=== PATIENT | female | born 1960 | race Caucasian/White ===

== ENCOUNTER → 2017-03-22 | Outpatient (CLI) | payer BC ==
--- NOTE | 2017-03-23 07:57 | MAMMOGRAPHY REPORT ---
BILATERAL DIGITAL SCREENING MAMMOGRAM TOMOSYNTHESIS WITH CAD: 03/22/2017 CLINICAL HISTORY: Routine screening. Patient has no complaints. TECHNIQUE: Breast tomosynthesis in addition to standard 2D mammography was performed. Current study was also evaluated with a Computer Aided Detection (CAD) system. COMPARISON: Comparison is made to exams dated: 03/31/2016 mammogram, 03/24/2016 mammogram, 03/17/2016 m ammogram, 03/13/2015 mammogram, 03/08/2014 mammogram, and 02/17/2012 mammogram - [facility]ter. BREAST COMPOSITION: There are scattered areas of fibroglandular density in both breasts. FINDINGS: There is a stable ribbon-shaped biopsy marker clip in the anterior right breast. No suspic ious mass, architectural distortion or cluster of microcalcifications is seen bilaterally. IMPRESSION: ACR BI-RADS CATEGORY 1: NEGATIVE There is no mammographic evidence of malignancy. A 1 year screening mammogram is recommended. The pa tient will receive written notification of the results. Approximately 10% of breast cancers are not detected with mammography. A negative mammographic report should not delay biopsy if a clinically suggestive mass is present. Marilyn Hoff M.D. ay/:03/22/2017 16:21:27 [employer] Worker: Hilda WALTER(Oli)(Maranda)([place]), [facility] letter sent: Normal 1/2 BI-RADS Code: ACR BI-RADS Category 1: Negative
== END | disposition home or self-care (01) ==
LOC: C.MAMM 07:18
PROVIDERS: ATTEND Family Medicine
DX: Z12.31 Encounter for screening mammogram for malignant neoplasm of breast (principal)

== ENCOUNTER → 2017-05-07 | Outpatient (CLI) | payer BC | END | disposition home or self-care (01) | LOC: C.PAPS 11:13 | PROVIDERS: ATTEND Obstetrics & Gynecology | DX: Z01.419 Encounter for gynecological examination (general) (routine) without abnormal findings (principal) ==

== ENCOUNTER 2020-05-13 02:24 | Observation (INO) ==
[2020-05-13] MEDS ORDERED: GI COCKTAIL ED USE PO ONE (02:37)
--- NOTE | 2020-05-13 02:44 | Emergency Department Note ---
History of Present Illness General Chief Complaint: Chest Pain Stated Complaint: CHEST PAIN Time Seen by Provider: 05/13/20 02:31 History of Present Illness This 59-year-old presents to the ER complaining of intermittent chest pains for the past day Location: Chest Quality: Painful Severity: Moderate Duration: Today Timing: Started around noon Context: Patient was concerned and came in Modifying factors: better with nothing; worse with nothing patient states she has a history esophageal spasms. She took Tums. No real improvement. Symptoms last for a few minutes. She had several episodes today. Nothing exertional. She has been traveling recently. She does not smoke. There is a family history of heart disease. Patient states she is healthy with no active medical problems. Patient denies exertional chest pain, radiating pain, dyspnea, abdominal pain, leg pain or swelling, flulike illness. Home Medications Home Medications Medication Instructions Recorded Confirmed Type calcium-vitamin D3-vitamin K 1 tab PO QAM 05/13/20 05/13/20 History [Viactiv] fluticasone propionate 1 spray INTRANASAL BID PRN 05/13/20 05/13/20 History ketoconazole 1 applic TOPICAL ONCE #120 ml 05/13/20 Rx ifeyyzbc-rmwduxu-xhjg-lutein 1 tab PO DAILY 05/13/20 05/13/20 History [Centrum Silver Ultra Women's] rivaroxaban [Xarelto DVT-PE Treat 1 ea PO DIRECTED #51 ea 05/13/20 Rx 30d Start] Allergies Allergy/AdvReac Type Severity Reaction Status Date / Time aspirin Allergy Severe SWELLING Verified 05/13/20 03:53 NSAIDS (Non-Steroidal Allergy Severe SWELLING Verified 05/13/20 03:53 Anti-Inflamma HIVES codeine Allergy Unknown Hypotension Unverified 05/13/20 03:56 ibuprofen Allergy Unknown Hypotension Unverified 05/13/20 03:54 naproxen Allergy Unknown Hypotension Unverified 05/13/20 03:55 Penicillins Allergy Unknown . Unverified 05/13/20 03:56 Past Med/Surg History Medical History No acute medical problems Surgical History No pertinent past surgical history Social History (Updated 05/13/20 @ 02:42 by Fannie Myers PA-C) Smoking Status: Never smoker Current Living Situation: Spouse Feels Safe at Home: Yes Review of Systems A total of 10 systems reviewed and were otherwise negative Physical Exam Vital Signs Vital Signs - 24 hr 05/13/20 02:27 05/13/20 02:30 05/13/20 02:40 Temperature 36.8 C Temperature Source Oral Pulse Rate 83 91 H Pulse Rate from SpO2 Sensor 83 Respiratory Rate 20 24 Respiratory Effort / Characteristics Non-Labored Spontaneous Respiratory Depth Normal Blood Pressure 162/101 H 172/106 H Blood Pressure Mean 127 128 Pulse Oximetry 97 97 Oxygen Delivery Method Room Air Room Air Room Air Sepsis Recent Fever Within 48 Hours No Sepsis New/Unexplained Change in Mental Status No Sepsis Action Taken by Nursing No Action Required 05/13/20 03:37 05/13/20 04:00 05/13/20 05:18 Temperature Temperature Source Pulse Rate 77 77 79 Pulse Rate from SpO2 Sensor 76 78 Respiratory Rate 20 21 20 Respiratory Effort / Characteristics Respiratory Depth Blood Pressure 183/105 H 158/98 H 165/106 H Blood Pressure Mean 136 113 125 Pulse Oximetry 98 96 99 Oxygen Delivery Method Room Air Room Air Room Air Sepsis Recent Fever Within 48 Hours Sepsis New/Unexplained Change in Mental Status Sepsis Action Taken by Nursing VITALS: Vitals are noted on the nurse's note and reviewed by myself. Vital sign s stable. GENERAL: Pleasant female, in no acute distress, nondiaphoretic, well-developed well-nourished. SKIN: Capillary reflex less than 2 seconds. HEENT: Normocephalic. PERRLA. EOMI. Nares patent. Mucous membranes moist. Neck is supple without nuchal rigidity. HEART: Regular rate and rhythm LUNGS: Clear to auscultation bilaterally without wheezes, rales or rhonchi. No retractions or accessory muscle use. ABDOMEN: Positive bowel sounds x 4. Normal tympanic percussion. Soft, nontender, without masses or organomegaly. Mccabe sign negative. No guarding or rebound tenderness. MUSCULOSKELETAL: No gross musculoskeletal defects. NEURO: Patient was alert and oriented to person place and time. No focal neurological deficits. Course Administered Medications Discontinued Medications Al Hydrox/Mg Hydrox/Simethicone (Gi Cocktail Ed Use) 1 dose PO ONE ONE Stop: 05/13/20 02:38 Last Admin: 05/13/20 02:58 Dose: 1 dose Documented by: [id number] Ioversol (Optiray 320 125ml) 125 ml IV ONCE ONE Stop: 05/13/20 03:41 Last Admin: 05/13/20 03:40 Dose: 106 ml Documented by: [id number] Medical Decision Making Medical Records Attestation: I reviewed the patient's medical records. Home Medications Current Medication List: was personally reviewed by me Laboratory Data Attestation: I reviewed the patient's lab results. Result diagrams: 05/13/20 02:10 05/13/20 02:10 Labs: Lab Results 05/13/20 05/13/20 05/13/20 Range/Units 02:10 02:10 02:10 WBC 8.31 (4.8-10.8) K/uL RBC 4.69 (4.2-5.4) M/uL Hgb 12.9 (12.0-16.0) g/dL Hct 39.3 (37-47) % MCV 83.8 (80-100) fL MCH 27.5 (25-34) pg MCHC 32.8 (32-36) g/dL RDW Std Deviation 40.2 (36.4-46.3) fL RDW Coeff of Trevor 13.3 (11.5-14.5) % Plt Count 175 (130-400) K/uL MPV 11.7 H (7.4-10.4) fL Immature Gran % (Auto) 0.1 % Neut % (Auto) 59.1 % Lymph % (Auto) 28.8 % [place]ata[place]oula % (Auto) 9.6 % Eos % (Auto) 1.9 % Baso % (Auto) 0.5 % Neut # (Auto) 4.91 (1.4-6.5) K/uL Lymph # (Auto) 2.39 (1.2-3.4) K/uL [place] # (Auto) 0.80 H (0.11-0.59) K/uL Eos # (Auto) 0.16 (0-0.5) K/uL Baso # (Auto) 0.04 (0-0.2) K/uL Immature Gran # (Auto) 0.01 (0.00-0.02) K/uL PT 10.3 (9.0-12.0) Seconds INR 1.0 (0.9-1.1) APTT 26.5 (21.0-31.0) Seconds PTT Ratio 0.9 D-Dimer 4080 H* (0-500) ug/L FEU Sodium 139 (136-145) mmol/L Potassium 3.6 (3.5-5.1) mmol/L Chloride 107 (98-107) mmol/L Carbon Dioxide 25 (21-32) mmol/L Anion Gap 7.0 (3-11) BUN 13 (7-18) mg/dl Creatinine 0.75 (0.6-1.2) mg/dl Est Cr Clr Drug Dosing 77.5 ml/min Est GFR ( Amer) 102.6 Est GFR (Non-Af Amer) 88.5 BUN/Creatinine Ratio 17.1 (10-20) Glucose 118 H (70-99) mg/dl Calcium 9.7 (8.5-10.1) mg/dl Total Bilirubin 0.5 (0.2-1) mg/dl AST 20 (15-37) U/L ALT 25 (12-78) U/L Alkaline Phosphatase 98 (45-117) U/L Troponin I < 0.015 (0-0.045) ng/ml Total Protein 7.7 (6.4-8.2) gm/dl Albumin 3.6 (3.4-5.0) gm/dl Globulin 4.1 H (2.5-4.0) gm/dl Albumin/Globulin Ratio 0.9 (0.9-2) Lipase 124 (73-393) U/L 05/13/20 Range/Units 04:40 WBC (4.8-10.8) K/uL RBC (4.2-5.4) M/uL Hgb (12.0-16.0) g/dL Hct (37-47) % MCV (80-100) fL MCH (25-34) pg MCHC (32-36) g/dL RDW Std Deviation (36.4-46.3) fL RDW Coeff of Trevor (11.5-14.5) % Plt Count (130-400) K/uL MPV (7.4-10.4) fL Immature Gran % (Auto) % Neut % (Auto) % Lymph % (Auto) % [place]oul[place] % (Auto) % Eos % (Auto) % Baso % (Auto) % Neut # (Auto) (1.4-6.5) K/uL Lymph # (Auto) (1.2-3.4) K/uL [place] # (Auto) (0.11-0.59) K/uL Eos # (Auto) (0-0.5) K/uL Baso # (Auto) (0-0.2) K/uL Immature Gran # (Auto) (0.00-0.02) K/uL PT (9.0-12.0) Seconds INR (0.9-1.1) APTT (21.0-31.0) Seconds PTT Ratio D-Dimer (0-500) ug/L FEU Sodium (136-145) mmol/L Potassium (3.5-5.1) mmol/L Chloride (98-107) mmol/L Carbon Dioxide (21-32) mmol/L Anion Gap (3-11) BUN (7-18) mg/dl Creatinine (0.6-1.2) mg/dl Est Cr Clr Drug Dosing ml/min Est GFR ( Amer) Est GFR (Non-Af Amer) BUN/Creatinine Ratio (10-20) Glucose (70-99) mg/dl Calcium (8.5-10.1) mg/dl Total Bilirubin (0.2-1) mg/dl AST (15-37) U/L ALT (12-78) U/L Alkaline Phosphatase (45-117) U/L Troponin I < 0.015 (0-0.045) ng/ml Total Protein (6.4-8.2) gm/dl Albumin (3.4-5.0) gm/dl Globulin (2.5-4.0) gm/dl Albumin/Globulin Ratio (0.9-2) Lipase (73-393) U/L MDM Narrative Prior records/ancillary studies reviewed. Triage Nursing notes reviewed. Additional history obtained from EMS. The patient's history was concerning for chest pain. Differential diagnosis: Etiologies such as cardiac ischemia, aortic dissection, pulmonary embolism, pne umonia, pneumothorax, musculoskeletal, infections, pericarditis, myocarditis, esophageal rupture, gastrointestinal, as well as others were entertained. Physical examination: As above. ER treatment provided: An order was placed for continuous cardiac monitoring. The monitor shows a rate of 60-100 with a sinus rhythm. GI cocktail, Xarelto On reassessment the patient felt better. Diagnostic interpretation by me: The electrocardiogram was negative for pathologic change. Normal sinus, normal intervals, no acute ST-T wave changes. Impression normal sinus with interpreted by myself EKG ordered for chest pain I think arrhythmia is unlikely. EKG shows normal sinus rhythm with no interval abnormalities such as QT prolongation or WPW. There are no findings to suggest Brugada syndrome. Cardiac monitoring in the emergency department reveals no tachycardic or bradycardic dysrhythmia. Hypertrophic cardiomyopathy was considered but there are no clear historical elements pointing toward this. EKG is not suggestive. The QRS voltage is not extremely large and there are no suggestive Q waves. The labs revealed negative troponin. Elevated d-dimer Imaging studies: Chest x-ray with no acute consolidation, pneumothorax or free air per my interpretation CTA CHEST: Small pulmonary embolus in the subsegmental pulmonary arteries to the lingula. No definite evidence for right heart strain. No aortic aneurysm or dissection. No acute pulmonary parenchymal abnormality identified. Mild scarring at the lung apices. Nonspecific 3 mm nodule in the right lower lobe. Minimal dependent and bibasilar atelectasis. Small hiatal hernia. Evaluation of the stomach is limited by underdistention. Nonspecific mildly prominent mediastinal and hilar lymph nodes. Radiologist: Anitra Dickson M.D. US VENOUS BILATERAL LOWER EXTREMITIES: No DVT in the left lower extremity Right lower extremity deep venous thrombosis in the peroneal vein. Radiologist: Chase Pearson MD HEART SCORE: Hx: high/mod/low suspicion: 0 ECG: ST depression/nonspecific changes/normal: 0 Age: Greater than 65/45-64/less than 45: 1 Risk factors: (Hypertension, hyperlipidemia, diabetes, coronary disease, tobacco use, cocaine use): 0 Troponin: Greater than 2 times normal limits/1-2 times normal limits/normal: 0 Total: 1 Consultation: A consultation was placed with the hospitalist, Dr. Snider. The case was discussed and diagnostics were reviewed. The patient was evaluated in the ER for further treatment. He agrees with treatment plan of discharging on Xarelto since patient is considered low risk and outpatient follow-up as long as ultrasound of the legs are negative. Patient has a small DVT. Medicine will admit the patient. PESI Score Age: 59 Male gender: 0 History of cancer: 0 Heart failure: 0 Chronic lung disease: 0 Pulse =110/min: 0 Systolic blood pressure <100 mmH Respiratory rate =30/min: 0 Temperature <36 Celcius: 0 Altered mental status: 0 Arterial oxygen saturation <90 percent: 0 Total: 57 Class I Low risk <66 Class II 66 to 85 Class III High risk 86 to 105 Class IV 106 to 125 Class V >125 Exam and history seem consistent small subsegmental PE. PESIi score is low. Me gallardo was consulted. Patient is a small DVT and now will be evaluated for admission. Medicine was reconsulted. By the evaluation outlined above emergent etiologies such as cardiac ischemia, aortic dissection, pneumonia, pneumothorax, infections, pericarditis, myocarditis, gastrointestinal, as well as others were deemed relatively unlikely. The pt informed about the findings as listed above. All questions were answered and pleased with the treatment. The chart was completed utilizing [employer] Speech voice recognition software. Grammatical errors, random word insertions, pronoun errors, and incomplete sentences are an occassional consequence of this system due to software limitat ions, ambient noise, and hardware issues. Any formal questions or concerns about the content, text, or information contained within the body of this dictation should be directly addressed to the physician library clerical assistant for clarification. Impression & Plan Pulmonary embolism, Chest pain Discharge Plan Visit Data Chief Complaint: Chest Pain Stated Complaint: CHEST PAIN ED Provider: Janell Beckham ED Midlevel Provider: Fannie Myers Discharge Problem: Pulmonary embolism, Chest pain Patient Disposition: Admitted As Inpatient Condition: Good Discharge Instructions Krames/Other Patient Handouts: Embolism Pulmonary Dc Activity Restrictions/Additional Instructions: Forms Stand Alone Forms: Work/School Release (ED), Virtual Emergency Department, Important Visit Information Prescriptions Prescriptions: New Xarelto DVT-PE Treat 30d Start 15 mg (42)- 20 mg (9) tablets,dose pack 1 ea PO DIRECTED Qty: 51 RF: 0 ketoconazole 2 % shampoo 1 applic topical ONCE Qty: 120 RF: 0 No Action Centrum Silver Ultra Women's Tablet 1 tab PO DAILY RF: 0 calcium-vitamin D3-vitamin K [Viactiv] 650 mg-12.5 mcg-40 mcg Tablet,Chewable 1 tab PO QAM RF: 0 fluticasone propionate 50 mcg/actuation spray,suspension 1 spray INTRANASAL BID PRN (Reason: Allergy Symptoms) RF: 0 Referrals Referrals: Jean Steinberg MD [Primary Care Provider] - Discharge Problem: Pulmonary embolism Qualifiers: Pulmonary embolism type: single subsegmental (without acute cor pulmonale) Qualified Code(s): I26.93 - Single subsegmental pulmonary embolism without acute cor pulmonale
[2020-05-13 02:48] LABS: Basophils # (auto) 0.04 K/uL (0-0.2); Basophils % (auto) 0.5 %; Eosinophils # (auto) 0.16 K/uL (0-0.5); Eosinophils % (auto) 1.9 %; Hematocrit (blood only) 39.3 % (37-47); Hemoglobin 12.9 g/dL (12.0-16.0); Immature Granulocytes # (auto) 0.01 K/uL (0.00-0.02); Immature Granulocytes % (auto) 0.1 %; Lymphocytes # (auto) 2.39 K/uL (1.2-3.4); Lymphocytes % (auto) 28.8 %; Mean Corpuscular Hemoglobin 27.5 pg (25-34); Mean Corpuscular Hgb Conc 32.8 g/dL (32-36); Mean Corpuscular Volume 83.8 fL (80-100); Mean Platelet Volume 11.7 fL (7.4-10.4); Monocytes % (auto) 9.6 %; Neutrophils # (auto) 4.91 K/uL (1.4-6.5); Neutrophils % (auto) 59.1 %; Platelet Count 175 K/uL (130-400); RDW Coefficient of Variation 13.3 % (11.5-14.5); RDW Standard Deviation 40.2 fL (36.4-46.3); Red Blood Count 4.69 M/uL (4.2-5.4); White Blood Count 8.31 K/uL (4.8-10.8)
[2020-05-13 02:56] LABS: Alanine Aminotransferase 25 U/L (12-78); Albumin Level 3.6 gm/dl (3.4-5.0); Aspartate Aminotransferase 20 U/L (15-37); BUN Creatinine Ratio 17.1 (10-20); Blood Urea Nitrogen 13 mg/dl (7-18); Calcium 9.7 mg/dl (8.5-10.1); Carbon Dioxide 25 mmol/L (21-32); Chloride 107 mmol/L (98-107); Creatinine Clr Calc Pharmacy 77.5 ml/min; Est GFR (African American) 102.6; Est GFR (Non-African American) 88.5; Glucose 118 mg/dl (70-99); Lipase 124 U/L (73-393); Potassium 3.6 mmol/L (3.5-5.1); Sodium 139 mmol/L (136-145)
[2020-05-13 03:00] LABS: Partial Thromboplastin Ratio 0.9; Partial Thromboplastin Time 26.5 Seconds (21.0-31.0); Prothrombin Time 10.3 Seconds (9.0-12.0)
[2020-05-13 03:01] LABS: Albumin Globulin Ratio 0.9 (0.9-2); Alkaline Phosphatase 98 U/L (45-117); Bilirubin,Total 0.5 mg/dl (0.2-1); Globulin 4.1 gm/dl (2.5-4.0); Total Protein 7.7 gm/dl (6.4-8.2); Troponin I < 0.015 ng/ml (0-0.045)
[2020-05-13 03:05] LABS: D Dimer 4080 ug/L FEU (0-500)
[2020-05-13] MEDS ORDERED: OPTIRAY 320 125ml IV ONE (03:40)
--- NOTE | 2020-05-13 06:03 | History & Physical Report ---
Date of Service May 13, 2020 Assessment & Plan (1) Pulmonary embolism: Pulmonary embolism involving the lingula/DVT involving right lower extremity peroneal vein- Order hypercoagulable work-up Start anticoagulation with Xarelto. 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 Primary Care Provider: Jean Steinberg MD The patient is a 59-year-old female past medical history including esophageal spasm and allergic rhinitis, who recently went on a trip to [facility], and presents to the emergency department today with chest pain as noted. She has a known history of esophageal spasm, did try taking Tums without significant improvement. She reports having several episodes of chest discomfort today. She has no known sick exposures. Work-up in the emergency department included a CT angiography of chest PE protocol, which showed a small lingular pulmonary embolism. She then underwent bilateral lower extremity venous Dopplers, which were positive for DVT. Allergies Allergy/AdvReac Type Severity Reaction Status Date / Time aspirin Allergy Severe SWELLING Verified 05/13/20 03:53 NSAIDS (Non-Steroidal Allergy Severe SWELLING Verified 05/13/20 03:53 Anti-Inflamma HIVES codeine Allergy Unknown Hypotension Unverified 05/13/20 03:56 ibuprofen Allergy Unknown Hypotension Unverified 05/13/20 03:54 naproxen Allergy Unknown Hypotension Unverified 05/13/20 03:55 Penicillins Allergy Unknown . Unverified 05/13/20 03:56 Home Medications Home Medications Medication Instructions Recorded Confirmed Type calcium-vitamin D3-vitamin K 1 tab PO QAM 05/13/20 05/13/20 History [Viactiv] fluticasone propionate 1 spray INTRANASAL BID PRN 05/13/20 05/13/20 History ketoconazole 1 applic TOPICAL ONCE #120 ml 05/13/20 Rx pvcmsjqe-uwqoxyu-hdjr-lutein 1 tab PO DAILY 05/13/20 05/13/20 History [Centrum Silver Ultra Women's] rivaroxaban [Xarelto DVT-PE Treat 1 ea PO DIRECTED #51 ea 05/13/20 Rx 30d Start] Past Med/Surg History Medical History No acute medical problems Surgical History No pertinent past surgical history Social History (Updated 05/13/20 @ 02:42 by Fannie Myers PA-C) Smoking Status: Never smoker Current Living Situation: Spouse Feels Safe at Home: Yes Review of Systems Review of Systems: The patient denies palpitations, shortness of breath, dyspnea on exertion, cough, lower extremity swelling, sore throat, fevers, chills, sweats, nausea, vomiting, diarrhea , constipation, abdominal pain, pelvic pain, blood in urine or stool, dysuria, urinary frequency or urgency, lightheadedness, dizziness, headache, memory loss, loss of consciousness, rash, abnormal bruising or bleeding, imbalance, focal or generalized weakness, numbness or tingling in arms or legs, generalized arthralgias or myalgias, back or neck pain, or night sweats. The review of systems is otherwise negative other than for that already noted above, and at least 10 systems have been reviewed. Physical Exam Physical Exam: The patient is awake, alert and oriented 3, well developed and well nourished, normocephalic and atraumatic, lying in bed and in no acute distress. HEENT--PERRL, EOMI, mucous membranes and oropharynx normal. Neck--supple. No JVD. No bruits. Thyroid normal, trachea midline, no adenopathy. Heart--normal S1 and S2. No murmurs, rubs or gallops. Lungs--clear bilaterally, no respiratory distress, no accessory muscle use. Abdomen--normal bowel sounds and soft. Nontender. Nondistended. Extremities--no cyanosis or clubbing. No edema. Dermatologic--normal skin turgor, normal color, no abnormal lymph nodes, no rash. Neurologic--cranial nerves II through XII grossly intact. Rheumatologic--normal range of motion. Psychiatric--normal affect. Results & Data Results & Data ([facility]) Vital Signs (Past 12 Hours) Vital Signs Temp Pulse Resp BP Pulse Ox 05/13/20 05:18 79 20 165/106 H 99 05/13/20 04:00 77 21 158/98 H 96 05/13/20 03:37 77 20 183/105 H 98 05/13/20 02:40 98.2 F 91 H 24 172/106 H 97 05/13/20 02:30 83 20 162/101 H 97 Laboratory Results Laboratory Results WBC 8.31 K/uL (4.8-10.8) 05/13/20 02:10 RBC 4.69 M/uL (4.2-5.4) 05/13/20 02:10 Hgb 12.9 g/dL (12.0-16.0) 05/13/20 02:10 Hct 39.3 % (37-47) 05/13/20 02:10 MCV 83.8 fL (80-100) 05/13/20 02:10 MCH 27.5 pg (25-34) 05/13/20 02:10 MCHC 32.8 g/dL (32-36) 05/13/20 02:10 RDW Std Deviation 40.2 fL (36.4-46.3) 05/13/20 02:10 RDW Coeff of Trevor 13.3 % (11.5-14.5) 05/13/20 02:10 Plt Count 175 K/uL (130-400) 05/13/20 02:10 MPV 11.7 fL (7.4-10.4) H 05/13/20 02:10 Immature Gran % (Auto) 0.1 % 05/13/20 02:10 Neut % (Auto) 59.1 % 05/13/20 02:10 Lymph % (Auto) 28.8 % 05/13/20 02:10 [place] % (Auto) 9.6 % 05/13/20 02:10 Eos % (Auto) 1.9 % 05/13/20 02:10 Baso % (Auto) 0.5 % 05/13/20 02:10 Neut # (Auto) 4.91 K/uL (1.4-6.5) 05/13/20 02:10 Lymph # (Auto) 2.39 K/uL (1.2-3.4) 05/13/20 02:10 [place] # (Auto) 0.80 K/uL (0.11-0.59) H 05/13/20 02:10 Eos # (Auto) 0.16 K/uL (0-0.5) 05/13/20 02:10 Baso # (Auto) 0.04 K/uL (0-0.2) 05/13/20 02:10 Immature Gran # (Auto) 0.01 K/uL (0.00-0.02) 05/13/20 02:10 PT 10.3 Seconds (9.0-12.0) 05/13/20 02:10 INR 1.0 (0.9-1.1) 05/13/20 02:10 APTT 26.5 Seconds (21.0-31.0) 05/13/20 02:10 PTT Ratio 0.9 05/13/20 02:10 D-Dimer 4080 ug/L FEU (0-500) H* 05/13/20 02:10 Sodium 139 mmol/L (136-145) 05/13/20 02:10 Potassium 3.6 mmol/L (3.5-5.1) 05/13/20 02:10 Chloride 107 mmol/L (98-107) 05/13/20 02:10 Carbon Dioxide 25 mmol/L (21-32) 05/13/20 02:10 Anion Gap 7.0 (3-11) 05/13/20 02:10 BUN 13 mg/dl (7-18) 05/13/20 02:10 Creatinine 0.75 mg/dl (0.6-1.2) 05/13/20 02:10 Est Cr Clr Drug Dosing 77.5 ml/min 05/13/20 02:10 Est GFR ( Amer) 102.6 05/13/20 02:10 Est GFR (Non-Af Amer) 88.5 05/13/20 02:10 BUN/Creatinine Ratio 17.1 (10-20) 05/13/20 02:10 Glucose 118 mg/dl (70-99) H 05/13/20 02:10 Calcium 9.7 mg/dl (8.5-10.1) 05/13/20 02:10 Total Bilirubin 0.5 mg/dl (0.2-1) 05/13/20 02:10 AST 20 U/L (15-37) 05/13/20 02:10 ALT 25 U/L (12-78) 05/13/20 02:10 Alkaline Phosphatase 98 U/L (45-117) 05/13/20 02:10 Troponin I < 0.015 ng/ml (0-0.045) 05/13/20 04:40 Total Protein 7.7 gm/dl (6.4-8.2) 05/13/20 02:10 Albumin 3.6 gm/dl (3.4-5.0) 05/13/20 02:10 Globulin 4.1 gm/dl (2.5-4.0) H 05/13/20 02:10 Albumin/Globulin Ratio 0.9 (0.9-2) 05/13/20 02:10 Lipase 124 U/L (73-393) 05/13/20 02:10 Diagnostic Findings [facility] Patient: CRISTO HARVEY (Female) : 64 Status: ER Date: 05/13/20 03:39 Room #: History: TRAVEL TODAY IN CAR, HAS HAD CENTRAL CHEST PAIN ON AND OFF SINCE, ALSO PAIN THAT GOES UP NECK INTO JAW BILATERAL Slices: 665 Priors: Tech: Rj Arrieta @ [phone] Exams: CTA CHEST Contrast: IV Amt: 106 ML OPTIRAY 320 Accession Numbers: [id number] Preliminary Findings Only See Final Report For Complete Findings CTA CHEST: Small pulmonary embolus in the subsegmental pulmonary arteries to the lingula. No definite evidence for right heart strain. No aortic aneurysm or dissection. No acute pulmonary parenchymal abnormality identified. Mild scarring at the lung apices. Nonspecific 3 mm nodule in the right lower lobe. Minimal dependent and bibasilar atelectasis. Small hiatal hernia. Evaluation of the stomach is limited by underdistention. Nonspecific mildly prominent mediastinal and hilar lymph nodes. Radiologist: Anitra Dickson M.D. Study ready at 03:44 and initial results transmitted at 03:59 Communications: Clear Time Type Notes 05/13/20 04:00 Call Doctor Regarding Pulmonary Embolism, called Corrie ELLISON i on 05/13 04:00 (-04:00) *This report constitutes a preliminary interpretation only. Non-acute findings felt to be unrelated to the clinical presentation may not be discussed in this report. The study will be interpreted and a final report will be generated by the local Radiologist the following shift. To reach the hospital radiology department call [phone]. If a discrepancy is found between the preliminary and final interpretations of this study, please notify us via our Client Portal at [email or web address], under [email or web address] [email or web address].You can also fax this report with a description of the discrepancy, or include the final report, to our daytime fax number [phone].If faxing, please indicate the severity of discrepancy using one of the following categories: [ ] 1 - Agree/Informational [ ] 2 - Unlikely to Affect Management [ ] 3 - Possible Eventual Change of Management [ ] 4 - Probable Immediate Change of Management For all other patient related information, please fax us at [phone]. [id number] [facility] Patient: CRISTO HARVEY (Female) : 64 Status: ER Date: 05/13/20 05:32 Room #: History: PE Slices: 48 Priors: Tech: Hazel Brambilanifer @ [phone] Exams: US VENOUS BILATERAL LOWER EXTREMITIES Contrast: Accession Numbers: [id number] Preliminary Findings Only See Final Report For Complete Findings US VENOUS BILATERAL LOWER EXTREMITIES: No DVT in the left lower extremity Right lower extremity deep venous thrombosis in the peroneal vein. Radiologist: Chase Pearson MD Study ready at 05:43 and initial results transmitted at 05:49 *This report constitutes a preliminary interpretation only. Non-acute findings felt to be unrelated to the clinical presentation may not be discussed in this report. The study will be interpreted and a final report will be generated by the local Radiologist the following shift. To reach the hospital radiology department call [phone]. If a discrepancy is found between the preliminary and final interpretations of this study, please notify us via our Client Portal at [email or web address], under [email or web address] [email or web address].You can also fax this report with a description of the discrepancy, or include the final report, to our daytime fax number [phone].If faxing, please indicate the severity of discrepancy using one of the following categories: [ ] 1 - Agree/Informational [ ] 2 - Unlikely to Affect Management [ ] 3 - Possible Eventual Change of Management [ ] 4 - Probable Immediate Change of Management For all other patient related information, please fax us at [phone] [id number] Code Status & VTE Plan Code Status Full code VTE Prophylaxis Plan VTE Prophylaxis will be ordered: Yes PG Care Time/CCT Total # of Minutes Spent Total Time Spent with Patient: Total time spent is greater than 50% in coordination of care (as documented) at patient's floor/unit and/or counseling patient: Coding Level of Care Code 07478 OBS Care - Level 3 Diagnoses Pulmonary embolism I26.93 Pulmonary embolism type: single subsegmental (without acute cor pulmonale) DVT of leg (deep venous thrombosis) I82.409 Costochondritis M94.0 H/O esophageal spasm Z87.19 (1) Pulmonary embolism Pulmonary embolism type: single subsegmental (without acute cor pulmonale) Qualified Code(s): I26.93 - Single subsegmental pulmonary embolism without acute cor pulmonale
--- NOTE | 2020-05-13 06:49 | Ultrasound Report ---
US venous doppler LE BI CLINICAL HISTORY: Pulmonary embolism COMPARISON STUDY: No previous studies for comparison. FINDINGS: Real-time color flow and Doppler spectral waveform analysis was performed. On the right, no thrombus is visualized in common femoral superficial femoral and popliteal veins. Th ere is a right peroneal thrombus. The anterior tibial and posterior tibial veins appeared patent. On the left, the common femoral superficial femoral popliteal veins appeared patent. The proximal tri furcation veins appear patent. IMPRESSION: 1. Right lower extremity DVT involving the peroneal vein. No evidence for above the thrombus 2. No evidence of left lower extremity DVT ACT 112: Negative or not required by law. Electronically signed by: Johnathan Malik M.D. 05/13/2020 6:48 AM
--- NOTE | 2020-05-13 07:06 | CT Scan Report ---
CT ANGIOGRAPHY OF THE CHEST, PULMONARY EMBOLUS PROTOCOL CLINICAL HISTORY: Chest pain extending into the neck. COMPARISON STUDY: Chest radiograph February 18, 2014 and May 13, 2020. TECHNIQUE: Following IV administration of 106 mL of Optiray-320, helical axial images of the chest we re obtained utilizing the pulmonary embolus protocol. Maximal intensity projections and sagittal and coronal reformats were viewed on an independent 3D workstation. IV contrast was administered withou t complication. Automated exposure control was utilized for the study. A dose lowering technique wa s utilized adhering to the principles of ALARA. CT DOSE: 342.33 mGycm FINDINGS: Note is made of a small segmental embolus within the lingula shown on axial image 166 of 2 78. No central pulmonary embolus is identified. The size of the heart is normal. There is no thoracic aortic dissection. There is no pericardial effusion. No pneumothorax or pleural effusion is present. There is no pulmonary infarct. No consolidation is present. No thoracic lymphadenopathy is present. Upper abdomen is unremarkable. IMPRESSION: 1. Small segmental pulmonary embolus within the lingula. 2. No pulmonary infarct. ACT 112: Negative or not required by law. Electronically signed by: Tyrone Nguyen M.D. 05/13/2020 7:05 AM
--- NOTE | 2020-05-13 07:56 | XRay Report ---
XR chest 1V portable HISTORY: Atypical Chest Pain COMPARISON: Chest 02/18/2014. FINDINGS: The lungs are clear. Cardiac silhouette is normal in size. No pleural effusions. No pneumot horax. IMPRESSION: No acute process. ACT 112: Negative or not required by law. Electronically signed by: Marcelino Hernandez M.D. 05/13/2020 7:54 AM
[2020-05-13] MEDS ORDERED: ONDANSETRON INJ 2 MG/ML 2 ML VIAL IV PRN (08:03)
[2020-05-13] MEDS ORDERED: FLUTICASONE PROPIONATE NA SPR 16 GM BTL PRN (08:03)
[2020-05-13] MEDS ORDERED: ACETAMINOPHEN 325 MG TAB PO PRN (08:03)
[2020-05-13] MEDS ORDERED: INFLUENZA VIRUS QUAD VACCINE 0.5 ML SYR IM ONE (08:17)
[2020-05-13] MEDS ORDERED: INFLUENZA ADMINISTRATION CHARGE ONE (08:17)
[2020-05-13] MEDS ORDERED: RIVAROXABAN 15 MG TAB PO SCH (09:00)
[2020-05-13] MEDS ORDERED: NON-FORMULARY MEDICATION (Calcium-Vitamin D3-Vitamin K [Viactiv] 1 TAB) PO SCH (09:00)
[2020-05-13] MEDS ORDERED: CEROVITE ADV FORMULA TAB PO SCH (09:00)
[2020-05-13] MEDS ORDERED: Nursing to Pharmacy Communication SCH (13:45)
--- NOTE | 2020-05-13 16:04 | Electrocardiogram Report ---
Test Reason : Blood Pressure : / mmHG Vent. Rate : 093 BPM Atrial Rate : 093 BPM P-R Int : 136 ms QRS Dur : 076 ms QT Int : 340 ms P-R-T Axes : 050 044 050 degrees QTc Int : 422 ms Age and gender specific ECG analysis Normal sinus rhythm Nonspecific ST and T wave abnormality Abnormal ECG When compared with ECG of 24-JAN-2018 09:31, Criteria for Septal infarct are no longer Present Confirmed by Ramez Hamm ([id number]) on 05/13/2020 4:03:45 PM Referred By: REFERRED SELF Confirmed By:Ramez Hamm
--- NOTE | 2020-05-13 16:04 | Electrocardiogram Report ---
Test Reason : Blood Pressure : / mmHG Vent. Rate : 081 BPM Atrial Rate : 081 BPM P-R Int : 158 ms QRS Dur : 084 ms QT Int : 376 ms P-R-T Axes : 034 -02 030 degrees QTc Int : 436 ms Normal sinus rhythm Nonspecific ST abnormality Abnormal ECG When compared with ECG of 13-MAY-2020 02:27, (unconfirmed) No significant change was found Confirmed by Ramez Hamm ([id number]) on 05/13/2020 4:03:52 PM Referred By: REFERRED SELF Confirmed By:Ramez Hamm
--- NOTE | 2020-05-14 08:49 | Discharge Summary ---
Date of Service May 13, 2020 Admission HPI Per Admitting Provider The patient is a 59-year-old female past medical history including esophageal spasm and allergic rhinitis, who recently went on a trip to [facility], and presents to the emergency department today with chest pain as noted. She has a known history of esophageal spasm, did try taking Tums without significant improvement. She reports having several episodes of chest discomfort today. She has no known sick exposures. Work-up in the emergency department included a CT angiography of chest PE protocol, which showed a small lingular pulmonary embolism. She then underwent bilateral lower extremity venous Dopplers, which were positive for DVT. Principal Diagnosis Pulmonary embolism Discharge Exam Constitutional WD/WN, vitals as above Neck trachea midline, no thyromegaly Respiratory normal respiratory effort, lungs clear to auscultation Cardiovascular RRR, no murmur, no edema Gastrointestinal (Abdomen) normal bowel sounds, soft, nontender, no hepatosplenomegaly Musculoskeletal no cyanosis or clubbing, extremities motor strength 5/5 Skin no rashes, warm and dry Neurologic patellar DTR's 2+ bilat, sensation intact and PERRL, EOMI, accommodation nl, no face palsy, no dysarthria Psychiatric A+Ox3, euthymic affect Discharge Data Allergies Allergy/AdvReac Type Severity Reaction Status Date / Time aspirin Allergy Severe SWELLING Verified 05/13/20 03:53 NSAIDS (Non-Steroidal Allergy Severe SWELLING Verified 05/13/20 03:53 Anti-Inflamma HIVES codeine Allergy Unknown Hypotension Unverified 05/13/20 03:56 ibuprofen Allergy Unknown Hypotension Unverified 05/13/20 03:54 naproxen Allergy Unknown Hypotension Unverified 05/13/20 03:55 Penicillins Allergy Unknown . Unverified 05/13/20 03:56 Consultations 05/13/20 05:37 ED Decision to Admit Stat 05/13/20 08:03 Consult Case Management - Discharge Planning Routine Ordered Studies 05/13/20 03:05 CT angio chest PE protocol Urgent 05/13/20 04:25 US venous doppler [facility] Urgent Hospital Course (1) Pulmonary embolism: Pulmonary embolism involving the lingula/DVT involving right lower extremity peroneal vein- no dyspnea, no hypoxia, no cough, HR stable has some chest pain on right side of chest, would not correlate with lingula PE suspect the right sided chest pain due to carrying heavy straps across right shoulder treat PE with Xarelto, 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 by 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 caser discharge to home, follow up with PCP (2) DVT of leg (deep venous thrombosis): right lower extremity DVT involving peroneal vein treat with Xarelto (3) Costochondritis: Reproducible pain right upper lateral costochondral junction- Likely traced back to having to carry 3 cameras over her right shoulder 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 [employer] (4) H/O esophageal spasm: Not related to the symptoms of today Total Time Total Time Spent Total Time Spent (In Minutes): 32 Total Time Includes: Examination of the Patient, Discharge Planning and Medication Reconciliation Discharge Plan Discharge Items Patient Disposition: Home - Self-Care Reason For Visit: PE, DVT Discharge Diagnosis: Small pulmonary embolism Right peroneal vein DVT Chest pain Condition on Discharge: Good Activity: Resume your previous activity Non-emergency contact: Primary Care Provider Call non-emergency contact if: you have any medication questions Follow-up/Referrals: Jean Steinberg MD [Primary Care Provider] - 05/20/20 10:50 am (one week, hospital follow up with Dr Boudreaux) Diet: Regular Addtl Attending Provider Instructions: Medications: - Xarelto: take 15mg twice a day for 21 days then change to 20mg daily, continue this for 6 months Pulmonary embolism, right peroneal vein DVT treated with Xarelto no limitations, stay active hypercoagulable panel sent in the ED, this is to look for genetic pre- disposition for blood clots, results will take a week to come back follow up with Dr. Steinberg in one week he can prescribe you further Xarelto 20mg daily, the starter pack will be good for the first month of treatment Pending Studies at Discharge: Yes Studies:: hypercoagulable panel Stand-Alone Forms: My [place], Smoking Cessation Medications and DC Order Prescriptions: New Xarelto DVT-PE Treat 30d Start 15 mg (42)- 20 mg (9) tablets,dose pack 1 ea PO DIRECTED Qty: 51 RF: 0 ketoconazole 2 % shampoo 1 applic topical ONCE Qty: 120 RF: 0 Continued fplfigbn-uvorlzm-wrpy-lutein Tablet 1 tab PO DAILY RF: 0 calcium-vitamin D3-vitamin K [Viactiv] 650 mg-12.5 mcg-40 mcg Tablet,Chewable 1 tab PO QAM RF: 0 fluticasone propionate 50 mcg/actuation spray,suspension 1 spray INTRANASAL BID PRN (Reason: Allergy Symptoms) RF: 0 Discharge Orders: Discharge Order (Routine); Ordered 05/13/20 Ordered By: Domenico Swann Admission Data Admit Date/Time: 05/13/20 05:46 Attending Provider: Domenico Swann Admit Provider: Francis Love Primary Care Provider: Jean Steinberg Other Providers: Francis Love Other Interventions: Discharge Summary Assessment (RN) Last Done: 05/13/20 13:44 Coding Level of Care Code 63836 OBS Care - Discharge Diagnoses Pulmonary embolism I26.93 Pulmonary embolism type: single subsegmental (without acute cor pulmonale) DVT of leg (deep venous thrombosis) I82.409 Costochondritis M94.0 H/O esophageal spasm Z87.19
[2020-05-16 22:20] LABS: Anti Cardiolipin Ab IgG <14 GPL; Anti Cardiolipin Ab IgM <12 MPL; Anti-Thrombin III Activity 107 % normal (80-135); PTT LA Screen 34 sec (<=40)
[2020-05-17 01:03] LABS: B2 Glycoprotein IgG <9 SGU (<=20); B2 Glycoprotein IgM <9 SMU (<=20); Protein S Functional(Activity) 55 % (60-140)
== END 2020-05-13 14:32 | disposition home or self-care (01) ==
LOC: 1E 02:24 → ED 02:24 → SUATTDRO 05:46 → 1E 07:32